=== PATIENT | female | born 1960 | race Caucasian/White ===

== ENCOUNTER → 2018-01-20 | Outpatient (CLI) | payer OTHER | LOC: CIMAGING 12:37 | PROVIDERS: ATTEND Family Medicine | DX: Z02.1 Encounter for pre-employment examination (principal) | CPT/HCPCS: 71046-PO ==

== ENCOUNTER → 2018-02-09 | Outpatient (CLI) | payer OTHER | LOC: CIMAGING 08:32 | PROVIDERS: ATTEND Family Medicine | DX: Z12.31 Encounter for screening mammogram for malignant neoplasm of breast (principal); Z80.3 Family history of malignant neoplasm of breast ==